=== PATIENT | male | born 1945 | race Hispanic/Latino ===

== ENCOUNTER 2018-12-08 12:29 | Observation (INO) | payer OTHER ==
[~2018-12-08] VITALS: Ht 162.6 cm; Wt 61.4 kg
[~2018-12-08 12:29] MED LIST: ASPI-1181 PO; HYDR12.530 PO; INSLAN SQ; LISI10TA7 PO; MAGN250T10 PO; MULT-1203 PO; SIMV20TA6 PO
[2018-12-08 13:16] LABS: BASOPHILS % (AUTO) 0.4 % (0.0-5.0); EOSINOPHILS % (AUTO) 1.1 % (0.0-8.0); HEMATOCRIT 25.5 % (42-54); LYMPHOCYTES % (AUTO) 11.9 % (21.0-51.0); MEAN CORPUSCULAR HEMOGLOBIN 26.3 pg (27.0-33.0); MEAN CORPUSCULAR HGB CONC 31.6 g/dL (32.0-36.0); MEAN CORPUSCULAR VOLUME 83.2 fL (79-99); MONOCYTES % (AUTO) 8.6 % (3.0-13.0); PLATELET COUNT (AUTO) 202 K/uL (130-400); RED BLOOD CELL COUNT(AUTO) 3.06 MIL/uL (4.50-6.20); RED CELL DISTRIBUTION WIDTH 15.6 % (11.0-15.5); WHITE BLOOD COUNT (AUTO) 6.9 K/uL (4.8-10.8)
[2018-12-08 13:22] LABS: CREATININE 3.8 mg/dL (0.5-1.5); INR 0.95 (0.85-1.15); PARTIAL THROMBOPLASTIN TIME 25.9 SEC (26.3-35.5); POTASSIUM 5.3 mmol/L (3.5-5.1)
[2018-12-08 13:27] LABS: ALBUMIN 2.8 g/dL (3.5-5.0); BILIRUBIN,TOTAL 0.2 mg/dL (0.2-1.0); TOTAL PROTEIN, SERUM 6.6 g/dL (6.0-8.3)
[2018-12-08] MEDS ORDERED: SODIUM CHLORIDE 0.9% 500ML 500 ML IV ONE (14:51)
[2018-12-08] MEDS ORDERED: SODIUM POLYSTYRENE SULFONATE 15 GM/60 ML ML ONE (15:11)
[2018-12-08 15:13] LABS: RETICULOCYTE % (AUTO) 0.95 % (0.42-2.23)
[2018-12-08 15:17] LABS: % IRON SATURATION 6.1 % (30-44)
[2018-12-08 17:41] VITALS: BP 158/57
[2018-12-08] MEDS ORDERED: INSLAN SQ (17:55)
[2018-12-08] MEDS ORDERED: FURO20TA4 PO (17:55)
[2018-12-08] MEDS ORDERED: HYDR-4153 PO (17:55)
[2018-12-08] MEDS ORDERED: ACETAMINOPHEN 325 MG TAB PO PRN ×3 (18:00→21:30)
[2018-12-08] MEDS ORDERED: ONDANSETRON HCL 4 MG/2 ML VIAL IVP PRN (18:00)
[2018-12-08] MEDS ORDERED: MORPHINE SULFATE 2 MG/ML 1ML SYG IVP PRN (18:00)
--- NOTE | 2018-12-08 18:00 | NUR ---
ARRIVAL TO FLOOR PT IS AAOX4 DENIES CP DENIES SOB DENIES NV NO COMPLAINTS RESTING IN BED. FAMILY IS AT BEDSIDE, CALL LIGHT WITHIN REACH.
--- NOTE | 2018-12-08 18:08 | NUR ---
[facility] FOR CONSULT SPOKE WITH ANSWERING SERVICE, AWAITING CALL BACK
[2018-12-08 20:17] VITALS: BP 151/55
[2018-12-08] MEDS: INSULIN HUMULIN R 100 UNIT/ML 3ML SQ SCH (20:50)
[2018-12-08] MEDS: ENOXAPARIN SODIUM 30 MG/0.3 ML SQ SCH (20:50)
[2018-12-08] MEDS ORDERED: MAG HYDROX/AL HYDROX/SIMETH ES 30 ML SUSP UDCUP PO PRN (21:30)
[2018-12-08] MEDS ORDERED: LACTULOSE 20 GM/30 ML UDCUP PO PRN (21:30)
[2018-12-08] MEDS ORDERED: ACETAMINOPHEN-CODEINE 300/30MG TAB PO PRN (21:30)
[2018-12-08] MEDS ORDERED: DIPHENHYDRAMINE HCL 25 MG CAPSULE PO PRN (21:30)
[2018-12-08] MEDS ORDERED: NITROGLYCERIN 0.4 MG SL TAB SL PRN (21:30)
[2018-12-08] MEDS ORDERED: GUAIFENESIN-DM 200/20 MG 10 ML PO PRN (21:30)
[2018-12-08] MEDS ORDERED: ZOLPIDEM TARTRATE 5 MG TAB PO PRN (21:30)
[2018-12-08] MEDS ORDERED: ONDANSETRON HCL 4 MG/2 ML VIAL IV PRN (21:30)
[2018-12-08] MEDS ORDERED: DiphenhydrAMINE HCL 50 MG/ML VIAL IV PRN (21:30)
[2018-12-08] MEDS ORDERED: POTASSIUM CHLORIDE 20MEQ/100ML 100 ML IV PRN (21:45)
[2018-12-08] MEDS ORDERED: MAGNESIUM 2GM PREMIX 50ML 50 ML IV PRN (21:45)
[2018-12-08] MEDS ORDERED: POTASSIUM CHLORIDE 10% ELIXIR 20 MEQ/15 ML UDCUP PO PRN (21:45)
[2018-12-08] MEDS ORDERED: LIDOCAINE HCL-MPF 1% 2ML VIAL IVP PRN (21:45)
[2018-12-08] MEDS ORDERED: HYDRALAZINE HCL 20 MG/ML VIAL IV PRN (21:45)
[2018-12-08] MEDS ORDERED: POTASSIUM CHLORIDE 20 MEQ ERTAB PO PRN (21:45)
[2018-12-09] VITALS (7 sets, daily range): BP systolic 148–165; BP diastolic 44–59
[2018-12-09 03:58] LABS: MEAN CORPUSCULAR HEMOGLOBIN 27.1 pg (27.0-33.0); MEAN CORPUSCULAR HGB CONC 32.6 g/dL (32.0-36.0); PLATELET COUNT (AUTO) 170 K/uL (130-400); RED BLOOD CELL COUNT(AUTO) 2.77 MIL/uL (4.50-6.20); RED CELL DISTRIBUTION WIDTH 15.5 % (11.0-15.5); WHITE BLOOD COUNT (AUTO) 6.2 K/uL (4.8-10.8)
[2018-12-09 04:10] LABS: B-TYPE NATRIURETIC PEPTIDE 2390 pg/mL (0-100)
[2018-12-09 04:15] LABS: CREATININE 3.6 mg/dL (0.5-1.5); MAGNESIUM 1.8 mg/dL (1.80-2.40); PHOSPHORUS 4.6 mg/dL (2.5-4.9); POTASSIUM 4.6 mmol/L (3.5-5.1)
[2018-12-09] MEDS: INSULIN HUMULIN R 100 UNIT/ML 3ML SQ SCH ×4 (06:10→20:55)
--- NOTE | 2018-12-09 07:30 | NUR ---
ASSESSMENT PT IS RESTING IN BED, AAOX4 DENIES CP DENIES SOB DENIES NV, BREATHING PATTERN IS EVEN AND UNLABORED, NO COMPLAINTS. CALL LIGHT WITHIN REACH.
[2018-12-09] MEDS: FAMOTIDINE 20MG TAB 20 MG TAB PO SCH (07:47)
[2018-12-09] MEDS ORDERED: EPOETIN ALFA 10,000 UNIT/ML VIAL SQ SCH (09:15)
[2018-12-09] MEDS ORDERED: COMPOUND IV MISC 1 EACH IVSOLN MISC PRN (09:30)
[2018-12-09] MEDS: IRON SUCROSE COMPLEX 100 MG in SODIUM CHLORIDE 0.9% 50 ML IV SCH (09:37)
[2018-12-09 11:11] LABS: APPEARANCE,URINE Clear (CLEAR); BILIRUBIN,URINE Negative (NEGATIVE); COLOR,URINE Yellow (YELLOW); GLUCOSE, URINE (UA) Negative (NEGATIVE); KETONES,URINE Negative (NEGATIVE); LEUKOCYTE ESTERASE ,URINE Negative (NEGATIVE); NITRATE,URINE Negative (NEGATIVE); OCCULT BLOOD,URINE Negative (NEGATIVE); PROTEIN,URINE 300 mg/dL (NEGATIVE); UROBILINOGEN,URINE 0.2 mg/dL (0.2-1.0)
[2018-12-09 11:15] LABS: CREATININE,URINE RANDOM 81 mg/dL (30-135)
[2018-12-09 11:26] LABS: RBC,URINE 0-1 /HPF (0-1)
[2018-12-09 11:27] LABS: BACTERIA,URINE Rare /HPF (None Seen); MUCUS,URINE Rare LPF (None Seen); SQUAMOUS EPITHELIAL CELL,UR Rare /HPF (0-2); WBC,URINE 0-1 /HPF (0-1)
[2018-12-09] MEDS: HYDRALAZINE HCL 25 MG TABLET PO SCH ×2 (12:12→16:41)
[2018-12-09 12:40] LABS: PROTEIN,URINE RANDOM 303.8 mg/dL (0-11.9)
--- NOTE | 2018-12-09 14:20 | NUR ---
DC PLAN VISITED WITH PATIENT. PATIENT LIVES WITH SPOUSE. INDEPENDENT ABLE TO PERFORM ADL'S. PATIENT HAS A WALKER BUT DOES NOT USE. FEELS SAFE TO RETURN HOME. Addendum: 12/09/18 at 1428 by NIKKI YOST RN CM Amended: Links added.
[2018-12-09] MEDS: ENOXAPARIN SODIUM 30 MG/0.3 ML SQ SCH (20:57)
[2018-12-09] MEDS ORDERED: SIMVASTATIN 20 MG TABLET PO SCH (21:00)
[2018-12-09] MEDS ORDERED: INSULIN GLARGINE 100 UNITS/ML 10 ML VIAL SQ SCH (21:00)
[2018-12-10] VITALS: BP 158/51
[2018-12-10 03:48] LABS: HEMATOCRIT 22.7 % (42-54); MEAN CORPUSCULAR HEMOGLOBIN 26.5 pg (27.0-33.0); MEAN CORPUSCULAR HGB CONC 32.3 g/dL (32.0-36.0); MEAN CORPUSCULAR VOLUME 82.1 fL (79-99); PLATELET COUNT (AUTO) 187 K/uL (130-400); RED BLOOD CELL COUNT(AUTO) 2.76 MIL/uL (4.50-6.20); RED CELL DISTRIBUTION WIDTH 15.1 % (11.0-15.5); WHITE BLOOD COUNT (AUTO) 6.1 K/uL (4.8-10.8)
[2018-12-10 04:00] VITALS: BP 167/50
[2018-12-10 04:03] LABS: CREATININE 3.5 mg/dL (0.5-1.5); MAGNESIUM 1.8 mg/dL (1.80-2.40); PHOSPHORUS 4.5 mg/dL (2.5-4.9); POTASSIUM 4.2 mmol/L (3.5-5.1)
[2018-12-10 04:36] LABS: LYMPHOCYTES % (MANUAL) 20 % (22-44); MAN.DIFF COMMENT-IMPRESSION MANUAL DIFFERENTIAL; PLATELET MORPHOLOGY COMMENT ADEQUATE; SEGMENTED NEUTROPHILS % 80 % (40-70)
[2018-12-10 07:00] VITALS: BP 144/59
[2018-12-10] MEDS: INSULIN HUMULIN R 100 UNIT/ML 3ML SQ SCH (07:30)
[2018-12-10] MEDS: IRON SUCROSE COMPLEX 100 MG in SODIUM CHLORIDE 0.9% 50 ML IV SCH (08:21)
[2018-12-10] MEDS: FAMOTIDINE 20MG TAB 20 MG TAB PO SCH (08:26)
[2018-12-10] MEDS: HYDRALAZINE HCL 25 MG TABLET PO SCH ×2 (08:27→12:38)
--- NOTE | 2018-12-10 08:30 | NUR ---
AM ASSESSMENT PT SITTING IN BED, WATCHING TV. FAMILY @ BEDSIDE. A/O X 3. NO SOB. NO DISTRESS NOTED. DENIES CHEST PAIN OR DISCOMFORT. DENIES PALPITATIONS. DENIES LIGHT HEADEDNESS AND/OR DIZZINESS. TELE: SB 40-50s. DENIES N/V AND/OR DIARRHEA. UP W/ASSISTANCE. INSTRUCTED TO CALL FOR ASSISTANCE. CALL ANGELES W/IN REACH. PT CLEARED BY DR AYOUB TO BE DISCHARGED HOME TODAY. PENDING PRIMARY TO DC PT HOME.
[2018-12-10] MEDS ORDERED: MULTIVITAMIN TABLET PO SCH (09:00)
[2018-12-10] MEDS ORDERED: ASPIRIN 81 MG EC TAB PO SCH (09:00)
[2018-12-10] MEDS ORDERED: MAGNESIUM OXIDE 400 MG TABLET PO SCH (09:00)
[2018-12-10 11:00] VITALS: BP 173/54
--- NOTE | 2018-12-10 12:45 | NUR ---
GIVEN DISMISSAL INSTRUCTIONS TO PATIENT IN [place]. VERBALIZED UNDERSTANDING. GIVEN SCRIPT FOR SODIUM BICARB TABLETS. REMOVED SALINE LOCK FROM RIGHT ARM AREA, IV SITE WITHOUT REDNESS NOTED. REMOVED TELE PACK. INFORMED PT THAT ONCE HE SEE DR. AYOUB ON November HE WILL THAT BE TOLD ABOUT THE EVENT MONITOR. VERBALIZED UNDERSTANDING. DAUGHTER AT BEDSIDE.
--- NOTE | 2018-12-10 13:05 | NUR ---
DISCHARGE PT TAKEN TO PRIVATE VEHICLE VIA WC BY Ananya FLOR RN, ACCOMPANIED BY FAMILY. NO DISTRESS NOTED.
[2018-12-11] MEDS ORDERED: FUROSEMIDE 20 MG TABLET PO SCH (09:00)
== END 2018-12-10 13:05 | disposition home or self-care (01) ==
LOC: EDH 12:29 → EDHIP 16:04 → 2DH 17:48
PROVIDERS: ADMIT Internal Medicine Critical Care Medicine; ATTEND Internal Medicine Critical Care Medicine
DX: I44.1 Atrioventricular block, second degree (principal); I12.9 Hypertensive chronic kidney disease with stage 1 through stage 4 chronic kidney disease, or unspecified chronic kidney disease; N18.9 Chronic kidney disease, unspecified; N17.9 Acute kidney failure, unspecified; R42 Dizziness and giddiness; D63.8 Anemia in other chronic diseases classified elsewhere; E11.21 Type 2 diabetes mellitus with diabetic nephropathy; E11.22 Type 2 diabetes mellitus with diabetic chronic kidney disease; E11.65 Type 2 diabetes mellitus with hyperglycemia; E78.00 Pure hypercholesterolemia, unspecified; E78.5 Hyperlipidemia, unspecified; I08.1 Rheumatic disorders of both mitral and tricuspid valves; I25.10 Atherosclerotic heart disease of native coronary artery without angina pectoris; Z79.899 Other long term (current) drug therapy
CPT/HCPCS: 36415 ×3; 71045; 76770; 80048 ×2; 80053; 81001; 82550; 82570; 82607; 82728; 82948 ×7; 83735 ×2; 83880; 84100 ×2; 84156; 84484; 85025 ×2; 85027; 85610; 85730; 93005; 96372 ×3; 96374; 96376; 99291; G0378 ×45; J0885; J1650 ×2; J1756 ×2; J7040

== ENCOUNTER 2018-12-17 06:02 | Observation (INO) | payer OTHER ==
[~2018-12-17] VITALS: Ht 162.6 cm; Wt 60.8 kg
[~2018-12-17 06:02] MED LIST changes: +FURO20TA4 PO; +HYDR-4153 PO; -HYDR12.530 PO; -LISI10TA7 PO
[2018-12-17 07:06] LABS: BASOPHILS % (AUTO) 0.6 % (0.0-5.0); EOSINOPHILS % (AUTO) 2.1 % (0.0-8.0); HEMATOCRIT 25.8 % (42-54); LYMPHOCYTES % (AUTO) 15.2 % (21.0-51.0); MEAN CORPUSCULAR HEMOGLOBIN 26.8 pg (27.0-33.0); MEAN CORPUSCULAR VOLUME 83.7 fL (79-99); MONOCYTES % (AUTO) 10.3 % (3.0-13.0); NEUTROPHILS % (AUTO) 71.8 % (40.0-77.0); PLATELET COUNT (AUTO) 226 K/uL (130-400); RED BLOOD CELL COUNT(AUTO) 3.08 MIL/uL (4.50-6.20); RED CELL DISTRIBUTION WIDTH 16.8 % (11.0-15.5); WHITE BLOOD COUNT (AUTO) 6.6 K/uL (4.8-10.8)
[2018-12-17 07:14] LABS: PARTIAL THROMBOPLASTIN TIME 25.2 SEC (26.3-35.5); PROTHROMBIN TIME 10.5 SEC (9.6-11.6)
[2018-12-17 07:15] LABS: CREATININE 3.8 mg/dL (0.5-1.5); POTASSIUM 4.3 mmol/L (3.5-5.1)
[2018-12-17 07:21] LABS: ALBUMIN 2.7 g/dL (3.5-5.0); BILIRUBIN,TOTAL 0.4 mg/dL (0.2-1.0); TOTAL PROTEIN, SERUM 6.4 g/dL (6.0-8.3)
[2018-12-17] MEDS ORDERED: FUROSEMIDE 10 MG/ML 4ML VIAL ONE ×2 (07:36→17:38)
[2018-12-17] MEDS ORDERED: ONDANSETRON HCL 4 MG/2 ML VIAL IVP PRN (10:15)
[2018-12-17] MEDS ORDERED: GLUCAGON 1MG KIT 1 MG ML IM PRN (10:15)
[2018-12-17] MEDS ORDERED: ACETAMINOPHEN 325 MG TAB PO PRN (10:15)
[2018-12-17] MEDS ORDERED: DEXTROSE 50%-WATER 50 ML DISP.SYRIN IV PRN (10:15)
[2018-12-17] MEDS ORDERED: LABETALOL HCL 5 MG/ML 20ML VIAL IV PRN (10:15)
--- NOTE | 2018-12-17 11:08 | NUR ---
[facility] met with pt and son Stevo Gaytan [phone], pt lives with Jennifer, and daughter Stephanie Gaytan is ER contact [phone] as well. Pt reports he is independent of all ADLS, does not use DME, but has walker and shower is handicapped equipped. No in home care services. Denies dc needs, plan is home at [place]n. Cm to follow and assist as needed Addendum: 12/17/18 at 1111 by RADHA RICE SS Amended: Links added.
[2018-12-17] MEDS ORDERED: HYDRALAZINE HCL 25 MG TABLET ONE (17:37)
[2018-12-17] MEDS ORDERED: AMLODIPINE BESYLATE 5 MG TAB PO ONE (17:38)
[2018-12-17] MEDS ORDERED: FUROSEMIDE 10 MG/ML 2ML VIAL ONE (17:38)
[2018-12-17] MEDS: INSULIN R PO SS1 SQ SCH (21:00)
[2018-12-17 21:02] LABS: BASOPHILS % (AUTO) 0.3 % (0.0-5.0); EOSINOPHILS % (AUTO) 0.5 % (0.0-8.0); HEMATOCRIT 28.9 % (42-54); LYMPHOCYTES % (AUTO) 8.5 % (21.0-51.0); MEAN CORPUSCULAR HEMOGLOBIN 26.7 pg (27.0-33.0); MEAN CORPUSCULAR HGB CONC 31.8 g/dL (32.0-36.0); MEAN CORPUSCULAR VOLUME 83.9 fL (79-99); MONOCYTES % (AUTO) 10.1 % (3.0-13.0); NEUTROPHILS % (AUTO) 80.6 % (40.0-77.0); PLATELET COUNT (AUTO) 264 K/uL (130-400); RED BLOOD CELL COUNT(AUTO) 3.44 MIL/uL (4.50-6.20); RED CELL DISTRIBUTION WIDTH 16.3 % (11.0-15.5); WHITE BLOOD COUNT (AUTO) 8.9 K/uL (4.8-10.8)
[2018-12-17 21:16] LABS: MAGNESIUM 1.8 mg/dL (1.80-2.40); PHOSPHORUS 4.5 mg/dL (2.5-4.9); URIC ACID 8.1 mg/dL (2.6-7.2)
[2018-12-17 21:18] LABS: % IRON SATURATION 7.7 % (30-44)
[2018-12-17 23:45] VITALS: BP 133/49
[2018-12-18 04:00] VITALS: BP 140/48
[2018-12-18 04:38] LABS: APPEARANCE,URINE Clear (CLEAR); BILIRUBIN,URINE Negative (NEGATIVE); COLOR,URINE Yellow (YELLOW); GLUCOSE, URINE (UA) Negative (NEGATIVE); KETONES,URINE Negative (NEGATIVE); LEUKOCYTE ESTERASE ,URINE Trace (NEGATIVE); NITRATE,URINE Negative (NEGATIVE); OCCULT BLOOD,URINE Negative (NEGATIVE); PROTEIN,URINE POS 2+ mg/dL (NEGATIVE); UROBILINOGEN,URINE 0.2 mg/dL (0.2-1.0)
[2018-12-18 05:01] LABS: BACTERIA,URINE None Seen /HPF (None Seen); RBC,URINE 0-1 /HPF (0-1); SQUAMOUS EPITHELIAL CELL,UR Rare /HPF (0-2)
[2018-12-18 05:33] LABS: HEMATOCRIT 24.7 % (42-54); MEAN CORPUSCULAR HEMOGLOBIN 26.6 pg (27.0-33.0); MEAN CORPUSCULAR HGB CONC 32.3 g/dL (32.0-36.0); MEAN CORPUSCULAR VOLUME 82.3 fL (79-99); PLATELET COUNT (AUTO) 242 K/uL (130-400); RED CELL DISTRIBUTION WIDTH 15.8 % (11.0-15.5)
[2018-12-18 05:44] LABS: CREATININE 4.3 mg/dL (0.5-1.5); MAGNESIUM 1.9 mg/dL (1.80-2.40); PHOSPHORUS 4.9 mg/dL (2.5-4.9); POTASSIUM 4.7 mmol/L (3.5-5.1); URIC ACID 8.5 mg/dL (2.6-7.2)
[2018-12-18] MEDS: INSULIN R PO SS1 SQ SCH ×4 (06:18→21:31)
[2018-12-18 07:30] VITALS: BP 127/49
[2018-12-18] MEDS: FOLIC ACID/VITAMIN B COMP W-C 1 MG CAP/TAB PO SCH (08:32)
[2018-12-18] MEDS: ASPIRIN 81 MG EC TAB PO SCH (08:32)
[2018-12-18] MEDS: MAGNESIUM OXIDE 400 MG TABLET PO SCH (08:32)
[2018-12-18] MEDS: HYDRALAZINE HCL 25 MG TABLET PO SCH ×2 (08:35→13:00)
[2018-12-18] MEDS: AMLODIPINE BESYLATE 5 MG TAB PO SCH (09:00)
[2018-12-18] MEDS ORDERED: FUROSEMIDE 20 MG TABLET PO SCH (09:00)
[2018-12-18] MEDS ORDERED: MULTIVITAMIN WITH MINERALS TABLET PO SCH (09:00)
[2018-12-18 12:06] VITALS: BP 119/46
--- NOTE | 2018-12-18 14:27 | NUR ---
Nutrition Intervention: Nutrition consult due to poor appetite. Pt. admitted with Dx of SOB. Pt. has lost 22#(14% of UBW) in 10 months due to decreased appetite. Pt. on Heart Healthy Renal Non dialysis diet with good p.o. intake, per pt. / family member. Labs reviewed(Alb 2.7, BUN 63, Creat 4.3, GFR 14, BG 170, Uric Acid 8.5). Pt. with moderate visceral protein depletion. Protein supplementation contraindicated at this time due to elevated renal labs. LBM: 12/17/18. SR-20, loose. Pt. with 2+ edema to BLE. BMI: 22.9, normal for age. Recommendations: 1) Rec. 75gm CCD Low Purine Renal Non Dialysis diet. 2) Continue to monitor pt's nutritional status. 3) Consult RD as nutrition concerns arise. Addendum: 12/18/18 at [address] Amended: Links added.
[2018-12-18 16:00] VITALS: BP 133/53
[2018-12-18 16:23] LABS: % IRON SATURATION 6.9 % (30-44)
[2018-12-18] MEDS: IRON SUCROSE COMPLEX 100 MG in SODIUM CHLORIDE 0.9% 50 ML IV SCH (17:41)
[2018-12-18 19:10] VITALS: BP 124/57
[2018-12-18] MEDS ORDERED: SIMVASTATIN 20 MG TABLET PO SCH (21:00)
[2018-12-18] MEDS ORDERED: INSULIN GLARGINE 100 UNITS/ML 10 ML VIAL SQ SCH (21:00)
--- NOTE | 2018-12-18 21:30 | NUR ---
MEDS SHIFT ASSESSMENT DONE, PLEASE REFER TO CPOE. DUE MEDS ADMINISTERED, TOLERATED WELL. KEPT RESTED AND COMFORTABLE. CALL LIGHT WITHIN REACH. WILL MONITOR PT. FAMILY AT BEDSIDE. Addendum: 12/19/18 at 0107 by CATIE RUIZ RN RN Amended: Links added.
[2018-12-19 00:03] VITALS: BP 138/64
--- NOTE | 2018-12-19 00:39 | NUR ---
BLOOD SUGAR PT CALLS AND CLAIMS OF FEELING WARM. PT STATED THAT HE FEELS HIS BLOOD SUGAR HAD DROPPED. PT IS AAOX3. CHECKED BLOOD SUGAR=35. PROVIDED PT WITH SANDWICH, JUICE AND APPLE SAUCE TO EAT. ORDERED BLOOD DRAW STAT FOR GLUCOSE CHECK PER PROTOCOL. WILL RE-ASSESS PT.
--- NOTE | 2018-12-19 01:30 | NUR ---
BLOOD SUGAR PT IS RESTING WELL. DENIES ANY CONCERNS AT THIS TIME. NO DISTRESS NOTED. RE-CHECKED PT'S BLOOD SUGAR=80. ENCOURAGED TO EAT ANOTHER SNACK AT THIS TIME. APPLE SAUCE PROVIDED. WILL CONTINUE TO MONITOR.
[2018-12-19 03:15] VITALS: BP 141/56
[2018-12-19 04:41] LABS: BASOPHILS % (AUTO) 0.3 % (0.0-5.0); EOSINOPHILS % (AUTO) 0.6 % (0.0-8.0); HEMATOCRIT 26.3 % (42-54); LYMPHOCYTES % (AUTO) 11.2 % (21.0-51.0); MEAN CORPUSCULAR HEMOGLOBIN 26.9 pg (27.0-33.0); MEAN CORPUSCULAR HGB CONC 32.6 g/dL (32.0-36.0); MEAN CORPUSCULAR VOLUME 82.4 fL (79-99); MONOCYTES % (AUTO) 8.5 % (3.0-13.0); NEUTROPHILS % (AUTO) 79.4 % (40.0-77.0); PLATELET COUNT (AUTO) 248 K/uL (130-400); RED BLOOD CELL COUNT(AUTO) 3.19 MIL/uL (4.50-6.20); RED CELL DISTRIBUTION WIDTH 16.8 % (11.0-15.5); WHITE BLOOD COUNT (AUTO) 9.5 K/uL (4.8-10.8)
[2018-12-19 04:53] LABS: B-TYPE NATRIURETIC PEPTIDE 2590 pg/mL (0-100)
[2018-12-19 04:55] LABS: CREATININE 4.3 mg/dL (0.5-1.5); MAGNESIUM 1.9 mg/dL (1.80-2.40); POTASSIUM 3.6 mmol/L (3.5-5.1)
--- NOTE | 2018-12-19 05:33 | NUR ---
SNACK LAB RESULTS IN AND NOTED GLUCOSE=59. WENT TO CHECK ON PT, AAOX3. DENIES ANY COMPLAINTS OF DISCOMFORT AT THIS TIME. SNACK OF AFTAB CRACKERS, PEANUT BUTTER AND JUICE GIVEN. WILL MONITOR PT.
[2018-12-19] MEDS: INSULIN R PO SS1 SQ SCH ×2 (06:11→11:16)
[2018-12-19 07:30] VITALS: BP 133/51
[2018-12-19] MEDS: MAGNESIUM OXIDE 400 MG TABLET PO SCH (08:27)
[2018-12-19] MEDS: FOLIC ACID/VITAMIN B COMP W-C 1 MG CAP/TAB PO SCH (08:27)
[2018-12-19] MEDS: ASPIRIN 81 MG EC TAB PO SCH (08:27)
[2018-12-19] MEDS: AMLODIPINE BESYLATE 5 MG TAB PO SCH (08:28)
[2018-12-19] MEDS: IRON SUCROSE COMPLEX 100 MG in SODIUM CHLORIDE 0.9% 50 ML IV SCH (08:28)
[2018-12-19 11:00] VITALS: BP 136/59
[2018-12-19] MEDS ORDERED: FUROSEMIDE 20 MG TABLET PO SCH (11:45)
[2018-12-19] MEDS ORDERED: PHARMACY COMMUNICATION MISC STA (14:32)
[2018-12-19] MEDS ORDERED: IRON SUCROSE COMPLEX 200 MG in SODIUM CHLORIDE 0.9% 250 ML IVP SCH (15:00)
--- NOTE | 2018-12-19 15:25 | NUR ---
DISCHARGE DISCHARGE TEACHING DONE WITH PATIENT AND FAMILY USING TEACHBACK METHOD, VERBALIZED UNDERSTANDING. NO NOTED SOB OR DISTRESS. NEW MEDICATION ADMINISTRATION TEACHING DONE WITH PATIENT AND FAMILY, VERBALIZED UNDERSTANDING. PT AWARE OF NEED TO SET UP APPOINTMENTS WITH CARDIOLOGY AND PCP. PER DAUGHTER, DR. MARTIN APPOINTMENT ALREADY MADE. IV REMOVED, CATH TIP INTACT. PENDING TO BE TRANSFERRED OUT VIA PRIVATE VEHICLE.
== END 2018-12-19 17:10 | disposition home or self-care (01) ==
LOC: EDH 06:02 → EDHIP 08:51 → 4AH 23:41
PROVIDERS: ADMIT Internal Medicine Pulmonary Disease; ATTEND Internal Medicine Pulmonary Disease
DX: E87.70 Fluid overload, unspecified (principal); D50.9 Iron deficiency anemia, unspecified; I12.9 Hypertensive chronic kidney disease with stage 1 through stage 4 chronic kidney disease, or unspecified chronic kidney disease; N18.4 Chronic kidney disease, stage 4 (severe); D63.1 Anemia in chronic kidney disease; E11.21 Type 2 diabetes mellitus with diabetic nephropathy; E11.22 Type 2 diabetes mellitus with diabetic chronic kidney disease; E11.319 Type 2 diabetes mellitus with unspecified diabetic retinopathy without macular edema; E11.51 Type 2 diabetes mellitus with diabetic peripheral angiopathy without gangrene; E78.5 Hyperlipidemia, unspecified; H54.61 Unqualified visual loss, right eye, normal vision left eye; I16.0 Hypertensive urgency; I44.1 Atrioventricular block, second degree; N17.9 Acute kidney failure, unspecified; Z79.4 Long term (current) use of insulin; Z79.82 Long term (current) use of aspirin; Z79.899 Other long term (current) drug therapy; Z83.3 Family history of diabetes mellitus
CPT/HCPCS: 36415 ×3; 71045; 80048 ×2; 80053; 81001; 82728 ×2; 82947; 82948 ×9; 83540 ×2; 83550 ×2; 83735 ×3; 83880 ×2; 84100 ×2; 84484; 84550 ×2; 85025 ×3; 85027; 85610; 85730; 93005; 93306; 96365; 96366; 96372 ×2; 96376; 97039 ×3; 97116 ×2; 97161; 99284; G0378 ×55; G8978; G8979; G8980; G8981; G8982; G8983; J1756 ×2; J1815; J1940 ×3; J7030

== ENCOUNTER 2019-01-07 07:15 | Observation (INO) | payer OTHER ==
[2019-01-06 14:09] LABS: BASOPHILS % (AUTO) 0.6 % (0.0-5.0); EOSINOPHILS % (AUTO) 2.9 % (0.0-8.0); HEMATOCRIT 29.9 % (42-54); MEAN CORPUSCULAR HEMOGLOBIN 27.2 pg (27.0-33.0); MEAN CORPUSCULAR HGB CONC 32.3 g/dL (32.0-36.0); MEAN CORPUSCULAR VOLUME 84.3 fL (79-99); MONOCYTES % (AUTO) 6.9 % (3.0-13.0); NEUTROPHILS % (AUTO) 70.6 % (40.0-77.0); PLATELET COUNT (AUTO) 208 K/uL (130-400); RED BLOOD CELL COUNT(AUTO) 3.55 MIL/uL (4.50-6.20); RED CELL DISTRIBUTION WIDTH 17.6 % (11.0-15.5); WHITE BLOOD COUNT (AUTO) 6.7 K/uL (4.8-10.8)
[2019-01-06 14:16] VITALS: BP 135/60
[2019-01-06 14:20] LABS: CREATININE 5.4 mg/dL (0.5-1.5); INR 0.95 (0.85-1.15); PARTIAL THROMBOPLASTIN TIME 26.1 SEC (26.3-35.5)
[2019-01-06 14:25] LABS: POTASSIUM 6.2 mmol/L (3.5-5.1)
--- NOTE | 2019-01-06 15:05 | NUR ---
ABNORMAL LABS @1430 CR[address] TO [address] PETERSON POTASSIUM 6.2, BUN 114. ALSO REPORTED A CREAT 5.4. ORDERS TO REPEAT BMP IN AM UPON ARRIVAL. AT THIS TIME, I REPORTED TO DR. PETERSON ADDITIONAL ABNORMAL LABS, H/H 9.6/29.9. NO FURTHER ORDERS GIVEN FOR H/H. ORDERED TO REPEAT ONLY POTASSIUM IN AM UPON ARRIVAL. CANCEL REPEAT BMP.
[2019-01-07] VITALS (12 sets, daily range): BP systolic 101–140; BP diastolic 53–69
[~2019-01-07] VITALS: Ht 162.6 cm; Wt 56.2 kg
[~2019-01-07 07:15] MED LIST changes: +CEFAZOLIN SODIUM 1 GM VIAL IVP SCH; +IRON PO
[2019-01-07] MEDS: SODIUM CHLORIDE 0.9% 1000ML 1,000 ML IV SCH ×3 (08:10→17:18)
--- NOTE | 2019-01-07 08:49 | NUR ---
PROCEDURE PT HERE FOR PROCEDURE. DAUGHTER AT BEDSIDE. DENIES ANY SX AT THIS TIME.
--- NOTE | 2019-01-07 09:30 | NUR ---
POTASSIUM DR. PETERSON INFORMED OF NEW POTASSIUM LEVEL.NO ORDERS RECEIVED.
[2019-01-07] MEDS ORDERED: CEFAZOLIN SODIUM 1 GM VIAL ONE (09:58)
[2019-01-07] MEDS ORDERED: BUPIVACAINE/PF 0.25% 30ML VIAL IJ ONE (09:58)
[2019-01-07] MEDS ORDERED: LIDOCAINE HCL 1% MDV 50ML VIAL ONE (09:58)
[2019-01-07] MEDS ORDERED: IODIXANOL 320 MG/ML 100 ML VIAL ONE (10:06)
--- NOTE | 2019-01-07 10:13 | NUR ---
PROCEDURE PT TAKEN TO PROCEDURE VIA STRETCHER.
[2019-01-07] MEDS ORDERED: MEPERIDINE-PF 25 MG/ML SYG ONE ×2 (10:14→10:49)
[2019-01-07] MEDS ORDERED: MIDAZOLAM HCL 1 MG/ML 2ML VIAL ONE ×2 (10:15→10:49)
[2019-01-07] MEDS ORDERED: TRAMADOL HCL 50 MG TABLET PO PRN (12:15)
--- NOTE | 2019-01-07 12:30 | NUR ---
POST PROCEDURE RECEIVED PT FROM ROLLED GLASS CROSSCUTTER, IN SEMI CARROLL'S POSITION, A&OX3, CALM COOPERATIVE AND DOES NOT APPEAR TO BE IN ANY DISTRESS NOR ANY NEURO DEFICITS PRESENT. PT DENIES PAIN, SOB, NAUSEA. LEFT SHOULDER DRESSING DRY INTACT AND SECURED WITH ARM SLING. PULSES AND CASH APPLICATIONS COORDINATOR STRENGTH STRONG TO ALL EXTREMITIES. PT ON BEDREST FOR 4 HOURS. CALL LIGHT WITHIN REACH, FAMILY AT BEDSIDE.
[2019-01-07] MEDS ORDERED: DEXTROSE 50%-WATER 50 ML DISP.SYRIN IV PRN (13:30)
[2019-01-07] MEDS ORDERED: LIDOCAINE HCL-MPF 1% 2ML VIAL IVP PRN ×2 (13:30)
[2019-01-07] MEDS ORDERED: POTASSIUM CHLORIDE 10% ELIXIR 20 MEQ/15 ML UDCUP PO PRN (13:30)
[2019-01-07] MEDS ORDERED: GLUCAGON 1MG KIT 1 MG ML IM PRN (13:30)
[2019-01-07] MEDS ORDERED: POTASSIUM CHLORIDE 20 MEQ ERTAB PO PRN (13:30)
[2019-01-07] MEDS ORDERED: POTASSIUM CHLORIDE 10MEQ/100ML 100 ML IV PRN ×2 (13:30)
[2019-01-07] MEDS ORDERED: ZOLPIDEM TARTRATE 5 MG TAB PO PRN (13:45)
[2019-01-07] MEDS ORDERED: ONDANSETRON HCL 4 MG/2 ML VIAL IV PRN (13:45)
[2019-01-07] MEDS ORDERED: GUAIFENESIN-DM 200/20 MG 10 ML PO PRN (13:45)
[2019-01-07] MEDS ORDERED: DIPHENHYDRAMINE HCL 25 MG CAPSULE PO PRN (13:45)
[2019-01-07] MEDS ORDERED: ACETAMINOPHEN 325 MG TAB PO PRN ×2 (13:45)
[2019-01-07] MEDS ORDERED: LACTULOSE 20 GM/30 ML UDCUP PO PRN (13:45)
[2019-01-07] MEDS ORDERED: MAG HYDROX/AL HYDROX/SIMETH ES 30 ML SUSP UDCUP PO PRN (13:45)
[2019-01-07] MEDS ORDERED: NITROGLYCERIN 0.4 MG SL TAB SL PRN (13:45)
[2019-01-07] MEDS ORDERED: DiphenhydrAMINE HCL 50 MG/ML VIAL IV PRN (13:45)
[2019-01-07] MEDS: INSULIN HUMULIN R 100 UNIT/ML 3ML SQ SCH ×2 (16:30→21:00)
[2019-01-07] MEDS ORDERED: SODIUM POLYSTYRENE SULFONATE 15 GM/60 ML ML PO SCH (17:00)
[2019-01-07] MEDS: HYDRALAZINE HCL 25 MG TABLET PO SCH (18:36)
[2019-01-07] MEDS ORDERED: INSULIN HUMULIN R 100 UNIT/ML 3ML IV SCH (20:30)
[2019-01-07] MEDS ORDERED: SODIUM BICARB 50MEQ 50ML VIAL IV SCH (20:30)
[2019-01-07] MEDS ORDERED: DEXTROSE 50%-WATER 50 ML DISP.SYRIN IV SCH (20:30)
[2019-01-07] MEDS ORDERED: CALCIUM GLUCONATE 1 GM in SODIUM CHLORIDE 0.9% 50 ML IV SCH (20:30)
[2019-01-07] MEDS ORDERED: SIMVASTATIN 20 MG TABLET PO SCH (21:00)
[2019-01-07] MEDS ORDERED: INSULIN GLARGINE 100 UNITS/ML 10 ML VIAL SQ SCH (21:00)
[2019-01-07] MEDS: FAMOTIDINE 20MG TAB 20 MG TAB PO SCH (21:11)
[2019-01-07] MEDS: FERROUS SULFATE 325 MG TABLET.DR PO SCH (21:12)
[2019-01-07] MEDS: FUROSEMIDE 20 MG TABLET PO SCH (21:12)
--- NOTE | 2019-01-08 00:26 | NUR ---
D/C As per Day shift All doctors on case agree for transfer to [facility] TAG CLERK with hospitalist here to see patient and D/C. Patient to be discharged with landis catheter. Report was given to [facility] nurse Radha. Including meds, meds given, plan of care and most recent vitals. Patient left at 0026 with Vitals signs within desired limits. Paper work was sent with EMS. Addendum: 01/08/19 at 0031 by LEONARDO CASILLAS RN incorrect patient note
[2019-01-08 03:00] VITALS: BP 142/55
[2019-01-08 04:25] LABS: POTASSIUM 4.9 mmol/L (3.5-5.1)
[2019-01-08] MEDS: INSULIN HUMULIN R 100 UNIT/ML 3ML SQ SCH ×2 (07:17→11:30)
[2019-01-08 07:28] VITALS: BP 103/44
--- NOTE | 2019-01-08 07:30 | NUR ---
ASSESSMENT ENCOUNTERED PT A&OX3, CALM COOPERATIVE AND DOES NOT APPEAR TO BE IN ANY DISTRESS NOR ANY NEURO DEFICITS PRESENT. PT DENIES PAIN, SOB, NAUSEA. LEFT SHOULDER DRESSING DRY, INTACT AND SECURED WITH ARM SLING. PT IS AMBULATORY, GAIT SLOW BUT STEADY WITH STAND BY ASSIST. CALL LIGHT WITHIN REACH, FAMILY AT BEDSIDE.
[2019-01-08] MEDS: FAMOTIDINE 20MG TAB 20 MG TAB PO SCH (08:25)
[2019-01-08] MEDS: FERROUS SULFATE 325 MG TABLET.DR PO SCH (08:26)
[2019-01-08] MEDS: HYDRALAZINE HCL 25 MG TABLET PO SCH (08:26)
[2019-01-08] MEDS: FUROSEMIDE 20 MG TABLET PO SCH (08:26)
[2019-01-08] MEDS ORDERED: MULTIVITAMIN TABLET PO SCH (09:00)
[2019-01-08] MEDS ORDERED: MAGNESIUM OXIDE 400 MG TABLET PO SCH (09:00)
[2019-01-08] MEDS ORDERED: ASPIRIN 81 MG EC TAB PO SCH (09:00)
[2019-01-08] MEDS: SODIUM CHLORIDE 0.9% 1000ML 1,000 ML IV SCH (09:43)
[2019-01-08 11:08] VITALS: BP 106/49
--- NOTE | 2019-01-08 13:00 | NUR ---
DISCHARGE INSTRUCTIONS GIVEN, PIV REMOVED, DISCHARGED HOME TO FAMILY VEHICLE VIA WHEELCHAIR.
== END 2019-01-08 14:30 | disposition home or self-care (01) ==
LOC: DAH 07:15 → DAHIP 07:16 → DAH 07:16 → 2DH 12:43
PROVIDERS: ADMIT Internal Medicine; ATTEND Internal Medicine
DX: I44.2 Atrioventricular block, complete (principal); E87.5 Hyperkalemia; E78.5 Hyperlipidemia, unspecified; I13.2 Hypertensive heart and chronic kidney disease with heart failure and with stage 5 chronic kidney disease, or end stage renal disease; E11.22 Type 2 diabetes mellitus with diabetic chronic kidney disease; N18.5 Chronic kidney disease, stage 5; I50.22 Chronic systolic (congestive) heart failure; F02.80 Dementia in other diseases classified elsewhere, unspecified severity, without behavioral disturbance, psychotic disturbance, mood disturbance, and anxiety; G30.9 Alzheimer's disease, unspecified; I25.10 Atherosclerotic heart disease of native coronary artery without angina pectoris; Z95.0 Presence of cardiac pacemaker; Z79.82 Long term (current) use of aspirin; Z79.899 Other long term (current) drug therapy; Z79.4 Long term (current) use of insulin
CPT/HCPCS: 33208; 33225; 36415 ×3; 71045; 80048 ×2; 82948 ×6; 84132 ×2; 85025; 85610; 85730; 96365; 96375; A4606; C1769; C2621; G0378 ×31; J0610; J0690; J1815; J2175 ×2; J2250 ×2; J3490 ×3; J7030; J7070; Q9967; 99156; 99157

== ENCOUNTER → 2020-11-20 | Outpatient (CLI) | payer OTHER ==
[~2020-11-20] MED LIST changes: -ASPI-1181 PO; +ASPI-1443 PO; -CEFAZOLIN SODIUM 1 GM VIAL IVP SCH; +SIMV-43 PO; -SIMV20TA6 PO
== END | disposition home or self-care (01) ==
LOC: SHCH 15:14
PROVIDERS: ATTEND Internal Medicine Cardiovascular Disease
DX: I65.23 Occlusion and stenosis of bilateral carotid arteries (principal); I25.10 Atherosclerotic heart disease of native coronary artery without angina pectoris
CPT/HCPCS: 93880

== ENCOUNTER → 2021-11-19 | Outpatient (CLI) | payer OTHER | END | disposition home or self-care (01) | LOC: SHCH 13:51 | PROVIDERS: ATTEND Internal Medicine Cardiovascular Disease | DX: G45.1 Carotid artery syndrome (hemispheric) (principal); I25.10 Atherosclerotic heart disease of native coronary artery without angina pectoris | CPT/HCPCS: 93880 ==

== ENCOUNTER → 2023-01-10 | Outpatient (CLI) | payer OTHER | END | disposition home or self-care (01) | LOC: SHCH 11:20 | PROVIDERS: ATTEND Internal Medicine Cardiovascular Disease | DX: I65.23 Occlusion and stenosis of bilateral carotid arteries (principal) | CPT/HCPCS: 93880 ==

== ENCOUNTER → 2023-05-04 | Outpatient (CLI) | payer OTHER ==
[2023-05-04 12:34] LABS: CHOLESTEROL 90 mg/dL (<200); HDL CHOLESTEROL 63 mg/dL (29-71); LDL DIRECT 39 mg/dL (0-99); TRIGLYCERIDES 40 mg/dL (30-200)
== END | disposition home or self-care (01) ==
LOC: LAB 08:34
PROVIDERS: ATTEND Internal Medicine Cardiovascular Disease
DX: I44.1 Atrioventricular block, second degree (principal); E11.65 Type 2 diabetes mellitus with hyperglycemia
CPT/HCPCS: 36415; 80061